=== PATIENT | female | born 1945 | race Hispanic/Latino ===

== ENCOUNTER 2017-07-18 12:38 | Inpatient (IN) | payer OTHER, MEDICARE ==
[~2017-07-18] VITALS: Ht 152.4 cm; Wt 63.6 kg
[2017-07-18 14:07] LABS: BASOPHILS % (AUTO) 0.2 % (0.0-5.0); HEMATOCRIT 31.1 % (36-48); LYMPHOCYTES % (AUTO) 5.7 % (21.0-51.0); MEAN CORPUSCULAR HEMOGLOBIN 33.2 pg (27.0-33.0); MEAN CORPUSCULAR HGB CONC 34.2 g/dL (32.0-36.0); MEAN CORPUSCULAR VOLUME 97.2 fL (79-99); MONOCYTES % (AUTO) 9.3 % (3.0-13.0); NEUTROPHILS % (AUTO) 84.8 % (40.0-77.0); PLATELET COUNT (AUTO) 166 K/uL (130-400); RED CELL DISTRIBUTION WIDTH 13.6 % (11.0-15.5); WHITE BLOOD COUNT (AUTO) 10.7 K/uL (4.8-10.8)
[2017-07-18 14:17] LABS: INR 1.02 (0.85-1.15); PARTIAL THROMBOPLASTIN TIME 35.5 SEC (26.3-35.5); PROTHROMBIN TIME 10.7 SEC (9.6-11.6)
[2017-07-18 14:21] LABS: CREATININE 2.1 mg/dL (0.5-1.5); POTASSIUM 3.9 mmol/L (3.5-5.1)
[2017-07-18 14:37] LABS: ALBUMIN 2.8 g/dL (3.5-5.0); BILIRUBIN,TOTAL 0.6 mg/dL (0.2-1.0); CREATINE KINASE MB 1.5 ng/mL (0.5-3.6); TOTAL PROTEIN, SERUM 6.7 g/dL (6.0-8.3)
[2017-07-18 15:14] LABS: B-TYPE NATRIURETIC PEPTIDE 1210 pg/mL (0-100)
[2017-07-18] MEDS ORDERED: IPRATROPIUM/ALBUTEROL SULFATE 3 ML SOLUTION IH ONE ×2 (15:33→18:18)
[2017-07-18] MEDS ORDERED: FUROSEMIDE 10 MG/ML 4ML VIAL ONE (15:35)
[2017-07-18] MEDS ORDERED: CEFTRIAXONE SODIUM 1 GM ONE (15:35)
[2017-07-18] MEDS ORDERED: OSELTAMIVIR PHOSPHATE 75 MG CAP ONE (15:36)
[2017-07-18] MEDS ORDERED: ACETAMINOPHEN 325 MG TAB ONE (16:00)
[2017-07-18 16:26] LABS: APPEARANCE,URINE Clear (CLEAR); BILIRUBIN,URINE Negative (NEGATIVE); COLOR,URINE Yellow (YELLOW); GLUCOSE, URINE (UA) 250 mg/dL (NEGATIVE); KETONES,URINE Negative (NEGATIVE); LEUKOCYTE ESTERASE ,URINE Negative (NEGATIVE); NITRATE,URINE Negative (NEGATIVE); OCCULT BLOOD,URINE Negative (NEGATIVE); PROTEIN,URINE POS 2+ (NEGATIVE); UROBILINOGEN,URINE 0.2 mg/dL (0.2-1.0)
[2017-07-18 16:54] LABS: BACTERIA,URINE Rare /HPF (None Seen); RBC,URINE None Seen /HPF (0-1); WBC,URINE 0-1 /HPF (0-1)
[2017-07-18 16:55] LABS: SQUAMOUS EPITHELIAL CELL,UR 0-2 /LPF (0-2)
[2017-07-18 17:25] VITALS: BP 132/64
[2017-07-18] MEDS ORDERED: DEXTROSE 50%-WATER 50 ML DISP.SYRIN IV PRN (20:00)
[2017-07-18] MEDS ORDERED: LACTULOSE 20 GM/30 ML UDCUP PO PRN (20:00)
[2017-07-18] MEDS ORDERED: GLUCAGON 1MG KIT 1 MG ML IM PRN (20:00)
[2017-07-18] MEDS ORDERED: ACETAMINOPHEN 325 MG TAB PO PRN ×2 (20:00)
[2017-07-18] MEDS ORDERED: ONDANSETRON HCL 4 MG/2 ML VIAL IVP PRN (20:00)
[2017-07-18] MEDS ORDERED: CLONIDINE HCL 0.1 MG TABLET PO PRN (20:00)
[2017-07-18] MEDS ORDERED: POTASSIUM CHLORIDE 20MEQ/100ML 100 ML IV PRN (20:00)
[2017-07-18] MEDS ORDERED: PHARMACY COMMUNICATION MISC SCH (20:00)
[2017-07-18] MEDS ORDERED: POTASSIUM CHLORIDE 10% ELIXIR 20 MEQ/15 ML UDCUP PO PRN (20:00)
[2017-07-18] MEDS ORDERED: LIDOCAINE HCL-MPF 1% 2ML VIAL IJ PRN (20:00)
[2017-07-18] MEDS ORDERED: NITROGLYCERIN 0.4 MG SL TAB SL PRN (20:00)
[2017-07-18] MEDS ORDERED: GUAIFENESIN-DM 200/20 MG 10 ML PO PRN (20:00)
[2017-07-18 20:01] VITALS: BP 110/58
[2017-07-18] MEDS ORDERED: COMPOUND PO MISCELLANEOUS 1 EACH MISC MISC PRN (20:45)
[2017-07-18] MEDS ORDERED: OSELTAMIVIR SUSP 15 MG/ML (6 CAPS/29ML) PO SCH ×2 (21:00)
[2017-07-18] MEDS: INSULIN R PO SSI SQ SCH (21:54)
[2017-07-18 23:41] VITALS: BP 108/52
[2017-07-19] MEDS: IPRATROPIUM/ALBUTEROL SULFATE 3 ML SOLUTION IH SCH ×5 (00:20→23:52)
[2017-07-19 03:38] VITALS: BP 123/63
[2017-07-19 03:56] LABS: HEMATOCRIT 29.8 % (36-48); MEAN CORPUSCULAR HGB CONC 34.1 g/dL (32.0-36.0); MEAN CORPUSCULAR VOLUME 96.7 fL (79-99); PLATELET COUNT (AUTO) 150 K/uL (130-400); RED BLOOD CELL COUNT(AUTO) 3.08 MIL/uL (4.00-5.50); WHITE BLOOD COUNT (AUTO) 8.9 K/uL (4.8-10.8)
[2017-07-19 04:23] LABS: CREATININE 2.3 mg/dL (0.5-1.5); POTASSIUM 3.6 mmol/L (3.5-5.1)
[2017-07-19 05:13] LABS: B-TYPE NATRIURETIC PEPTIDE 828 pg/mL (0-100)
[2017-07-19] MEDS: INSULIN R PO SSI SQ SCH ×4 (07:30→21:00)
[2017-07-19 08:00] VITALS: BP 130/66
[2017-07-19] MEDS ORDERED: ACETAMINOPHEN-CODEINE 300/30MG TAB PO PRN ×2 (08:45)
[2017-07-19] MEDS ORDERED: MORPHINE SULFATE 4 MG/1ML SYG IVP PRN (08:45)
[2017-07-19] MEDS ORDERED: MORPHINE SULFATE 2 MG/ML 1ML SYG IVP PRN (08:45)
[2017-07-19] MEDS ORDERED: OSELTAMIVIR PHOSPHATE 75 MG CAP PO SCH (09:00)
[2017-07-19] MEDS ORDERED: INSU10VI4 SQ (09:02)
[2017-07-19] MEDS ORDERED: LOSA1TAB42 PO (09:02)
[2017-07-19] MEDS ORDERED: HUMLIS7525 SQ ×2 (09:02)
[2017-07-19] MEDS ORDERED: LEVO125T11 PO (09:02)
[2017-07-19] MEDS ORDERED: D-ME118S13 PO (09:02)
[2017-07-19] MEDS ORDERED: AMLO10TA2 PO (09:02)
[2017-07-19] MEDS ORDERED: COMPOUND PO MISCELLANEOUS 1 EACH MISC MISC PRN (10:00)
[2017-07-19 11:00] VITALS: BP 126/71
[2017-07-19] MEDS: ACETYLCYSTEINE 20% 200MG/ML 4ML VIAL IH SCH ×3 (11:26→23:51)
[2017-07-19] MEDS: OSELTAMIVIR SUSP 15 MG/ML (6 CAPS/29ML) PO SCH ×2 (11:54)
[2017-07-19] MEDS: FAMOTIDINE 20MG TAB 20 MG TAB PO SCH (11:54)
[2017-07-19] MEDS ORDERED: INSULIN HUMULIN 70/30 100 UNIT/ML 3ML SQ SCH ×2 (12:00→17:00)
[2017-07-19] MEDS ORDERED: LEVOFLOXACIN 500 MG/D5W 100 ML 100 ML IV SCH (12:00)
[2017-07-19 16:00] VITALS: BP 123/69
[2017-07-19] MEDS: CEFTRIAXONE SODIUM 1 GM IVP SCH (17:18)
[2017-07-19 20:00] VITALS: BP 114/50
[2017-07-19] MEDS ORDERED: PHARMACY COMMUNICATION MISC SCH (20:00)
[2017-07-19] MEDS ORDERED: ACETYLCYSTEINE 20% 200MG/ML 4ML VIAL ONE (23:41)
[2017-07-20] VITALS: BP 126/66
[2017-07-20 03:56] LABS: HEMATOCRIT 30.4 % (36-48); MEAN CORPUSCULAR HGB CONC 34.2 g/dL (32.0-36.0); MEAN CORPUSCULAR VOLUME 96.4 fL (79-99); NUCLEATED RED BLOOD CELLS 0.1 % (0.0-0.19); PLATELET COUNT (AUTO) 185 K/uL (130-400); RED BLOOD CELL COUNT(AUTO) 3.16 MIL/uL (4.00-5.50); RED CELL DISTRIBUTION WIDTH 13.5 % (11.0-15.5); WHITE BLOOD COUNT (AUTO) 8.5 K/uL (4.8-10.8)
[2017-07-20 04:00] VITALS: BP 123/55
[2017-07-20 04:04] LABS: POTASSIUM 3.5 mmol/L (3.5-5.1)
[2017-07-20] MEDS: IPRATROPIUM/ALBUTEROL SULFATE 3 ML SOLUTION IH SCH ×3 (06:09→17:35)
[2017-07-20] MEDS: LEVOTHYROXINE 125 MCG TABLET PO SCH (06:42)
[2017-07-20] MEDS: INSULIN LISPRO PROTAMINE SQ SCH (07:30)
[2017-07-20] MEDS: INSULIN HUMULIN R 100 UNIT/ML 3ML SQ SCH ×4 (07:30→20:20)
[2017-07-20] MEDS: INSULIN LISPRO SQ SCH (07:30)
[2017-07-20] MEDS ORDERED: INSULIN HUMULIN 70/30 100 UNIT/ML 3ML SQ SCH (07:30)
[2017-07-20 08:00] VITALS: BP 130/65
[2017-07-20] MEDS: AMLODIPINE BESYLATE 5 MG TAB PO SCH (10:18)
[2017-07-20] MEDS: OSELTAMIVIR SUSP 15 MG/ML (6 CAPS/29ML) PO SCH ×2 (10:18)
[2017-07-20] MEDS: FAMOTIDINE 20MG TAB 20 MG TAB PO SCH (10:18)
[2017-07-20 11:00] VITALS: BP 123/66
[2017-07-20] MEDS: HUMALOG SQ SCH ×2 (11:45→17:17)
[2017-07-20 16:00] VITALS: BP 127/63
[2017-07-20] MEDS: CEFTRIAXONE SODIUM 1 GM IVP SCH (17:16)
[2017-07-20 20:00] VITALS: BP 119/62
[2017-07-21] VITALS (15 sets, daily range): BP systolic 98–134; BP diastolic 55–76
[2017-07-21] MEDS: IPRATROPIUM/ALBUTEROL SULFATE 3 ML SOLUTION IH SCH ×2 (00:44→06:00)
[2017-07-21] MEDS ORDERED: METOPROLOL TARTRATE 1 MG/ML 5ML VIAL IV ONE (03:09)
[2017-07-21] MEDS: METOPROLOL TARTRATE 1 MG/ML 5ML VIAL IV SCH (03:15)
[2017-07-21 03:49] LABS: HEMATOCRIT 31.1 % (36-48); MEAN CORPUSCULAR HEMOGLOBIN 32.7 pg (27.0-33.0); MEAN CORPUSCULAR VOLUME 96.1 fL (79-99); PLATELET COUNT (AUTO) 189 K/uL (130-400); RED BLOOD CELL COUNT(AUTO) 3.24 MIL/uL (4.00-5.50); RED CELL DISTRIBUTION WIDTH 13.4 % (11.0-15.5); WHITE BLOOD COUNT (AUTO) 5.9 K/uL (4.8-10.8)
[2017-07-21 04:04] LABS: CREATININE 1.5 mg/dL (0.5-1.5); POTASSIUM 3.3 mmol/L (3.5-5.1)
[2017-07-21] MEDS: POTASSIUM CHLORIDE 20 MEQ ERTAB PO PRN ×2 (05:01→06:40)
[2017-07-21] MEDS ORDERED: DEXTROSE 5% IV PRN (05:30)
[2017-07-21] MEDS ORDERED: DILTIAZEM HCL IV PRN (05:30)
[2017-07-21] MEDS ORDERED: DILTIAZEM HCL 125 MG/25 ML 125 MG in SODIUM CHLORIDE 0.9% 100 ML IV PRN (05:30)
[2017-07-21] MEDS ORDERED: WATER IV PRN (05:30)
[2017-07-21] MEDS ORDERED: SODIUM CHLORIDE 0.9% 500ML 500 ML IV ONE (06:16)
[2017-07-21] MEDS: IPRATROPIUM 0.5 MG/2.5 ML INH IH SCH ×5 (06:21→18:14)
[2017-07-21] MEDS: LEVOTHYROXINE 125 MCG TABLET PO SCH (06:22)
[2017-07-21] MEDS ORDERED: FUROSEMIDE 10 MG/ML 2ML VIAL IV SCH ×4 (07:00→17:00)
[2017-07-21] MEDS: INSULIN HUMULIN R 100 UNIT/ML 3ML SQ SCH ×4 (07:21→21:15)
[2017-07-21] MEDS: INSULIN LISPRO SQ SCH (07:30)
[2017-07-21] MEDS: INSULIN LISPRO PROTAMINE SQ SCH (07:30)
[2017-07-21] MEDS ORDERED: ENOXAPARIN SODIUM 60 MG/0.6 ML SQ SCH (09:00)
[2017-07-21] MEDS: LEVOFLOXACIN 250 MG/D5W 50ML 50 ML IVPB SCH (09:35)
[2017-07-21] MEDS: METOPROLOL TARTRATE 25 MG TAB PO SCH ×2 (09:36→20:02)
[2017-07-21] MEDS: FAMOTIDINE 20MG TAB 20 MG TAB PO SCH (09:36)
[2017-07-21] MEDS: CEFTRIAXONE SODIUM 1 GM IVP SCH (09:36)
[2017-07-21] MEDS: AMLODIPINE BESYLATE 5 MG TAB PO SCH (09:36)
[2017-07-21] MEDS: OSELTAMIVIR SUSP 15 MG/ML (6 CAPS/29ML) PO SCH ×2 (09:42)
[2017-07-21] MEDS: APIXABAN 5 MG TABLET PO SCH ×2 (10:06→19:57)
[2017-07-21] MEDS: HUMALOG SQ SCH ×2 (11:40→16:57)
[2017-07-21] MEDS ORDERED: LEVOFLOXACIN 250 MG/D5W 50ML IVPB SCH (12:00)
[2017-07-22] MEDS: IPRATROPIUM 0.5 MG/2.5 ML INH IH SCH ×5 (00:11→18:19)
[2017-07-22] MEDS: METOPROLOL TARTRATE 1 MG/ML 5ML VIAL IV SCH (03:15)
[2017-07-22 03:17] VITALS: BP 112/59
[2017-07-22 04:27] LABS: HEMATOCRIT 32.8 % (36-48); MEAN CORPUSCULAR HEMOGLOBIN 33.1 pg (27.0-33.0); MEAN CORPUSCULAR HGB CONC 34.5 g/dL (32.0-36.0); PLATELET COUNT (AUTO) 231 K/uL (130-400); RED BLOOD CELL COUNT(AUTO) 3.42 MIL/uL (4.00-5.50); RED CELL DISTRIBUTION WIDTH 13.6 % (11.0-15.5); WHITE BLOOD COUNT (AUTO) 5.5 K/uL (4.8-10.8)
[2017-07-22 04:39] LABS: CREATININE 1.5 mg/dL (0.5-1.5); MAGNESIUM 2.1 mg/dL (1.80-2.40); PHOSPHORUS 5.2 mg/dL (2.5-4.9); POTASSIUM 3.6 mmol/L (3.5-5.1)
[2017-07-22 04:52] LABS: B-TYPE NATRIURETIC PEPTIDE 869 pg/mL (0-100)
[2017-07-22] MEDS: INSULIN HUMULIN R 100 UNIT/ML 3ML SQ SCH ×4 (05:47→21:00)
[2017-07-22] MEDS: LEVOTHYROXINE 125 MCG TABLET PO SCH (06:01)
[2017-07-22] MEDS ORDERED: METO25 PO (06:42)
[2017-07-22] MEDS ORDERED: FURO20TA6 PO (06:42)
[2017-07-22] MEDS ORDERED: APIX5TAB PO (06:42)
[2017-07-22] MEDS: POTASSIUM CHLORIDE 20 MEQ ERTAB PO PRN ×2 (06:45→10:24)
[2017-07-22] MEDS ORDERED: ALBUHFA IH (06:51)
[2017-07-22] MEDS: INSULIN LISPRO PROTAMINE SQ SCH (07:30)
[2017-07-22] MEDS: INSULIN LISPRO SQ SCH (07:30)
[2017-07-22 08:02] VITALS: BP 129/67
[2017-07-22] MEDS: FUROSEMIDE 20 MG TABLET PO SCH (09:00)
[2017-07-22] MEDS: CEFTRIAXONE SODIUM 1 GM IVP SCH (09:52)
[2017-07-22] MEDS: METOPROLOL TARTRATE 25 MG TAB PO SCH ×2 (09:53→23:05)
[2017-07-22] MEDS: APIXABAN 5 MG TABLET PO SCH ×2 (09:53→21:20)
[2017-07-22] MEDS: FAMOTIDINE 20MG TAB 20 MG TAB PO SCH (09:53)
[2017-07-22] MEDS: AMLODIPINE BESYLATE 5 MG TAB PO SCH (09:53)
[2017-07-22] MEDS: OSELTAMIVIR SUSP 15 MG/ML (6 CAPS/29ML) PO SCH ×2 (09:56)
[2017-07-22] MEDS: FUROSEMIDE 10 MG/ML 2ML VIAL IV SCH ×2 (10:21→21:21)
[2017-07-22 11:21] VITALS: BP 130/69
[2017-07-22] MEDS: INSULIN HUMULIN 70/30 100 UNIT/ML 3ML SQ SCH (11:30)
[2017-07-22 16:00] VITALS: BP 113/65
[2017-07-22] MEDS ORDERED: INSULIN HUMULIN 70/30 100 UNIT/ML 3ML SQ SCH (16:30)
[2017-07-22 19:34] VITALS: BP 123/57
[2017-07-22 23:25] VITALS: BP 120/68
[2017-07-23] MEDS: IPRATROPIUM 0.5 MG/2.5 ML INH IH SCH ×3 (01:19→12:08)
[2017-07-23] MEDS: METOPROLOL TARTRATE 1 MG/ML 5ML VIAL IV SCH (03:15)
[2017-07-23 04:00] VITALS: BP 135/69
[2017-07-23 04:47] LABS: HEMATOCRIT 34.1 % (36-48); MEAN CORPUSCULAR HEMOGLOBIN 33.4 pg (27.0-33.0); MEAN CORPUSCULAR HGB CONC 34.9 g/dL (32.0-36.0); MEAN CORPUSCULAR VOLUME 95.6 fL (79-99); PLATELET COUNT (AUTO) 250 K/uL (130-400); RED BLOOD CELL COUNT(AUTO) 3.57 MIL/uL (4.00-5.50); RED CELL DISTRIBUTION WIDTH 13.5 % (11.0-15.5); WHITE BLOOD COUNT (AUTO) 5.7 K/uL (4.8-10.8)
[2017-07-23 04:48] LABS: CREATININE 1.7 mg/dL (0.5-1.5); POTASSIUM 3.9 mmol/L (3.5-5.1)
[2017-07-23 04:57] LABS: B-TYPE NATRIURETIC PEPTIDE 534 pg/mL (0-100)
[2017-07-23] MEDS: INSULIN LISPRO PROTAMINE SQ SCH (06:08)
[2017-07-23] MEDS: INSULIN LISPRO SQ SCH (06:08)
[2017-07-23] MEDS: INSULIN HUMULIN R 100 UNIT/ML 3ML SQ SCH ×2 (06:13→11:23)
[2017-07-23] MEDS: LEVOTHYROXINE 125 MCG TABLET PO SCH (06:17)
[2017-07-23 07:00] VITALS: BP 135/71
[2017-07-23] MEDS ORDERED: LEVO250T2 PO (07:09)
[2017-07-23] MEDS ORDERED: INSULIN HUMULIN 70/30 100 UNIT/ML 3ML SQ SCH (07:30)
[2017-07-23] MEDS: APIXABAN 5 MG TABLET PO SCH (08:51)
[2017-07-23] MEDS: FUROSEMIDE 20 MG TABLET PO SCH (08:51)
[2017-07-23] MEDS: FAMOTIDINE 20MG TAB 20 MG TAB PO SCH (08:51)
[2017-07-23] MEDS: AMLODIPINE BESYLATE 5 MG TAB PO SCH (08:51)
[2017-07-23] MEDS: METOPROLOL TARTRATE 25 MG TAB PO SCH (08:52)
[2017-07-23] MEDS: CEFTRIAXONE SODIUM 1 GM IVP SCH (08:52)
[2017-07-23] MEDS: LEVOFLOXACIN 250 MG/D5W 50ML 50 ML IVPB SCH (08:55)
[2017-07-23] MEDS: OSELTAMIVIR SUSP 15 MG/ML (6 CAPS/29ML) PO SCH ×2 (10:20)
[2017-07-23 11:00] VITALS: BP 128/68
[2017-07-23] MEDS: INSULIN HUMULIN 70/30 100 UNIT/ML 3ML SQ SCH (11:22)
== END 2017-07-23 15:20 | disposition home or self-care (01) | DRG 871 ==
LOC: EDH 12:38 → INTOOBSV 13:00 → EDHIP 13:00 → OBSVTOIN 13:00 → 3AH 16:41 → 2DH 07-21 06:04
PROVIDERS: ADMIT Internal Medicine; ATTEND Internal Medicine
DX: A41.9 Sepsis, unspecified organism (principal); J18.9 Pneumonia, unspecified organism; I50.33 Acute on chronic diastolic (congestive) heart failure; E11.22 Type 2 diabetes mellitus with diabetic chronic kidney disease; I48.0 Paroxysmal atrial fibrillation; E11.65 Type 2 diabetes mellitus with hyperglycemia; I13.0 Hypertensive heart and chronic kidney disease with heart failure and stage 1 through stage 4 chronic kidney disease, or unspecified chronic kidney disease; N18.4 Chronic kidney disease, stage 4 (severe); D63.8 Anemia in other chronic diseases classified elsewhere; E66.9 Obesity, unspecified; Z68.27 Body mass index [BMI] 27.0-27.9, adult; E89.0 Postprocedural hypothyroidism; Z79.4 Long term (current) use of insulin; Z87.01 Personal history of pneumonia (recurrent); Z90.710 Acquired absence of both cervix and uterus; Z90.49 Acquired absence of other specified parts of digestive tract
CPT/HCPCS: 36415; 71046; 71250; 76770; 80048; 80053; 81001; 82270; 82550; 82553; 82947; 82948; 83735; 83880; 84100; 84443; 84484; 85025; 85027; 85610; 85730; 87040; 87804; 93005; 93306; 94640; 94664; 94760; A4218; J0696; J1815; J1940; J1956; J3490; J7040; J7070; J7608

== ENCOUNTER 2017-09-17 13:12 | Emergency (ER) | payer OTHER, MEDICARE ==
[~2017-09-17 13:12] MED LIST: ALBUHFA IH; AMLO10TA2 PO; APIX5TAB PO; D-ME118S13 PO; FURO20TA6 PO; HUMLIS7525 SQ; INSU10VI4 SQ; LEVO125T11 PO; LEVO250T2 PO; METO25 PO
[2017-09-17] MEDS ORDERED: ALPRAZOLAM 0.25 MG TABLET ONE (13:44)
[2017-09-17 14:21] LABS: BASOPHILS % (AUTO) 0.4 % (0.0-5.0); EOSINOPHILS % (AUTO) 1.4 % (0.0-8.0); HEMATOCRIT 35.6 % (36-48); LYMPHOCYTES % (AUTO) 14.6 % (21.0-51.0); MEAN CORPUSCULAR HEMOGLOBIN 32.5 pg (27.0-33.0); MEAN CORPUSCULAR HGB CONC 34.2 g/dL (32.0-36.0); MEAN CORPUSCULAR VOLUME 94.8 fL (79-99); MONOCYTES % (AUTO) 10.1 % (3.0-13.0); NEUTROPHILS % (AUTO) 73.5 % (40.0-77.0); PLATELET COUNT (AUTO) 197 K/uL (130-400); RED BLOOD CELL COUNT(AUTO) 3.76 MIL/uL (4.00-5.50); RED CELL DISTRIBUTION WIDTH 13.1 % (11.0-15.5); WHITE BLOOD COUNT (AUTO) 7.3 K/uL (4.8-10.8)
[2017-09-17 14:37] LABS: CREATININE 1.3 mg/dL (0.5-1.5); POTASSIUM 4.2 mmol/L (3.5-5.1)
== END 2017-09-17 16:20 | disposition home or self-care (01) ==
LOC: EDH 13:12
DX: F41.1 Generalized anxiety disorder (principal); E11.9 Type 2 diabetes mellitus without complications; I10 Essential (primary) hypertension; E07.9 Disorder of thyroid, unspecified; Z79.4 Long term (current) use of insulin
CPT/HCPCS: 36415; 80048; 84484; 85025; 93005

== ENCOUNTER → 2017-10-04 | Outpatient (CLI) | payer OTHER, MEDICARE | END | disposition home or self-care (01) | LOC: RAH 09:14 | PROVIDERS: ATTEND Family Medicine | DX: Z12.31 Encounter for screening mammogram for malignant neoplasm of breast (principal) | CPT/HCPCS: 77067 ==

== ENCOUNTER → 2019-07-28 | Outpatient (CLI) | payer OTHER, MEDICARE ==
[~2019-07-28] MED LIST changes: -AMLO10TA2 PO; +AMLO10TA7 PO; -D-ME118S13 PO; +INSU100V33 SQ; -INSU10VI4 SQ; +PROM118S4 PO; +REGADENOSON 0.4 MG/5 ML PF SYG IVP SCH
== END | disposition home or self-care (01) ==
LOC: SHCH 08:49
PROVIDERS: ATTEND Internal Medicine Cardiovascular Disease
DX: I21.19 ST elevation (STEMI) myocardial infarction involving other coronary artery of inferior wall (principal)
CPT/HCPCS: 78452; 93017; 96374; A9500 ×2; J2785

== ENCOUNTER → 2020-11-09 | Outpatient (CLI) | payer OTHER, MEDICARE ==
[~2020-11-09] MED LIST changes: +AMLO-258 PO; -AMLO10TA7 PO; -PROM118S4 PO; +PROM118S5 PO; -REGADENOSON 0.4 MG/5 ML PF SYG IVP SCH
== END | disposition home or self-care (01) ==
LOC: SHCH 12:53
PROVIDERS: ATTEND Internal Medicine Cardiovascular Disease
DX: I50.32 Chronic diastolic (congestive) heart failure (principal)
CPT/HCPCS: 93306; 93356

== ENCOUNTER 2020-11-18 00:33 | Emergency (ER) | payer OTHER, MEDICARE ==
[2020-11-18 01:08] LABS: BASOPHILS % (AUTO) 0.2 % (0.0-5.0); HEMATOCRIT 30.1 % (36-48); LYMPHOCYTES % (AUTO) 17.1 % (21.0-51.0); MEAN CORPUSCULAR HEMOGLOBIN 31.3 pg (27.0-33.0); MEAN CORPUSCULAR HGB CONC 34.6 g/dL (32.0-36.0); MEAN CORPUSCULAR VOLUME 90.7 fL (79-99); MONOCYTES % (AUTO) 8.4 % (3.0-13.0); PLATELET COUNT (AUTO) 194 K/uL (130-400); RED BLOOD CELL COUNT(AUTO) 3.32 MIL/uL (4.00-5.50); WHITE BLOOD COUNT (AUTO) 5.9 K/uL (4.8-10.8)
[2020-11-18 01:24] LABS: INR 1.4 (0.85-1.15); PROTHROMBIN TIME 14.8 SEC (9.6-11.6)
[2020-11-18 01:26] LABS: PARTIAL THROMBOPLASTIN TIME 35.3 SEC (26.3-35.5)
[2020-11-18 01:34] LABS: ALBUMIN 2.8 g/dL (3.5-5.0); BILIRUBIN,TOTAL 0.6 mg/dL (0.2-1.0); CREATININE 1.2 mg/dL (0.5-1.5); POTASSIUM 3.2 mmol/L (3.5-5.1)
[2020-11-18] MEDS ORDERED: SODIUM CHLORIDE 0.9% 1000ML 1,000 ML IV ONE (02:07)
[2020-11-18] MEDS ORDERED: POTASSIUM BICARB/CIT AC 25 MEQ TABLET.EFF ONE (02:07)
[2020-11-18] MEDS ORDERED: AZITHROMYCIN 250 MG TABLET PO ONE (02:09)
[2020-11-18] MEDS ORDERED: CEFTRIAXONE SODIUM 1 GM ONE (02:09)
[2020-11-18 04:51] LABS: POTASSIUM 3.3 mmol/L (3.5-5.1)
[2020-11-25] MEDS ORDERED: RIVA15TA PO (02:41)
[2020-11-25] MEDS ORDERED: LOSA1TAB54 PO (02:41)
[2020-11-25] MEDS ORDERED: FURO20TA4 PO (02:41)
[2020-11-25] MEDS ORDERED: BENZ-39 PO (02:44)
== END 2020-11-18 06:52 | disposition home or self-care (01) ==
LOC: EDH 00:33
DX: J20.9 Acute bronchitis, unspecified (principal); E87.1 Hypo-osmolality and hyponatremia; I10 Essential (primary) hypertension; E11.9 Type 2 diabetes mellitus without complications; E07.9 Disorder of thyroid, unspecified; Z90.49 Acquired absence of other specified parts of digestive tract; Z90.710 Acquired absence of both cervix and uterus
CPT/HCPCS: 36415; 71045; 80053; 83605; 83690; 84132; 84295; 84484; 85025; 85610; 85730; 87040 ×2; 87077 ×2; 87186 ×2; 93005; 96365; 99285; J0696; J7030